=== PATIENT | female | born 1955 | race Caucasian/White ===

== ENCOUNTER 2023-09-24 01:36 | Emergency (ER) | payer MEDICARE ==
[~2023-09-24] VITALS: Ht 167.6 cm; Wt 71.8 kg
[2023-09-24 02:10] VITALS: BP 185/100; PULSE 68; TEMP 97.4
== END 2023-09-24 02:10 | disposition home or self-care (01) ==
LOC: COL.ER 01:36
DX: S60.464A Insect bite (nonvenomous) of right ring finger, initial encounter (principal); Z23 Encounter for immunization; W57.XXXA Bitten or stung by nonvenomous insect and other nonvenomous arthropods, initial encounter